=== PATIENT | female | born 1960 | race Caucasian/White ===

== ENCOUNTER 2024-03-14 09:56 | Emergency (ER) | payer OTHER, SELFPAY ==
[2024-03-14 10:00] VITALS: BP 160/86
[2024-03-14 11:05] VITALS: BMI 42.0
--- NOTE | 2024-03-14 11:14 | ED.GENMED ---
History of Present Illness
<SHYANN Mariano - Last Filed: 03/14/24 15:32>
General
Chief Complaint: Breathing Problem
Source: patient
Exam Limitations: none
Time Seen by Provider: 03/14/24 11:13
Nursing documentation reviewed up to this point in time: agreed with
History of Present Illness
History of Present Illness:
Patient is a 63-year-old female who presents to the ER complaining of fatigue and shortness of breath in January. She has not been to her family doctor for this. She reports she does not go routinely. She feels exhausted and very weak.
She reports she is very short of breath with exertion. She has not had any appetite and has had some weight loss. She denies any chest pain. She denies any recent illness fever chills. She did start with a nonproductive cough this week .
she is not a smoker. She does drink alcohol occasional
No prior history of DVT PE. No family history of DVT PE.
Past History
<SHYANN Mariano - Last Filed: 03/14/24 15:32>
Past History
ED Past Medical History: Psychiatric and Other (IBS)
ED Past Surgical History: Cholecystectomy
Social History
Tobacco: Non-smoker
Alcohol: None
Drug: None
Personal:
Living: with family
Employment: Employed
Family History
Family History: Other (Noncontributory)
Review of Systems
<SHYANN Mariano - Last Filed: 03/14/24 15:32>
Review of Systems
Allergies reviewed?: Yes
All Other Systems: ROS reviewed and negative except as documented in HPI and ROS
Constitutional: Reports fatigue; Denies fever or chills
EENT: Reports no symptoms
Respiratory: Reports cough and trouble breathing; Denies hemoptysis
Cardiac: Reports no symptoms; Denies chest pain, diaphoresis or palpitations
ABD/GI: Reports anorexia and other (weight loss)
: Reports no symptoms
Musculoskeletal: Reports no symptoms
Phy Exam
<Janine Bangura ELECTRICAL INSTRUMENTATION TECHNICIAN - Last Filed: 03/14/24 23:15>
Physical Exam
Physical Exam:
-year-old G was getting GENERAL: No acute distress. A&Ox3.
CONSTITUTIONAL: Afebrile.
EYES: clear, conjunctivae normal
Neck: Supple
ENMT: moist mucus membranes, Pharynx nl
RESPIRATORY: Regular respirations, nonlabored, lungs clear.
CARDIOVASCULAR: Regular rate and rhythm, no murmurs, no rubs.
GI: Soft, nontender, normal BS
MUSCULOSKELETAL: Moves with ease. Well perfused.
SKIN: Warm, dry, pink
PSYCH: Normal mood and affect. Well kept, interactive and appropriate
NEUROLOGIC: Awake, alert and oriented. No focal neurological deficits
Scores
<Janine Bangura ELECTRICAL INSTRUMENTATION TECHNICIAN - Last Filed: 03/14/24 23:15>
Heart Failure Risk
Heart Failure Risk Score: Not Applicable
Course
<SHYANN Mariano - Last Filed: 03/14/24 15:32>
Orders/Labs/Results
Orders:
Orders
03/14/24 09:57
Electrocardiogram (*1) Urgent
Reason for Study: Shortness of Breath
EKG- Treatment ONCE
03/14/24 11:16
BNP [NT-proBNP] Urgent
COVID-19 Antigen Urgent
Source: Nasal Swab
Complete Blood Count/With Diff Urgent
Comprehensive Metabolic Panel Urgent
Troponin I Urgent
Comment: ADD ON
03/14/24 11:23
Chest [CR Chest - 2 Views ] Urgent
Comment:
Reason For Exam: sob
03/14/24 11:27
DDimer [D-Dimer] Urgent
Urinalysis Reflex To Culture Urgent
Date Specimen was Collected: 03/14/24
Time Specimen was Collected: 11:24
Urine Microscopic Reflex Cult Urgent
03/14/24 13:20
CT Pe/abd/pel W Urgent
Comment:
Reason For Exam: sob /fatigue /elevated lfts
03/14/24 13:39
0.9% Sodium Chloride 1000 ml [Nss] 1,000 ml IV BOLUS
03/14/24 15:31
Add On- LAB Urgent
Tests Added?: troponin
Abnormal Lab Results
03/14/24 03/14/24
11:16 11:27
WBC 4.0 L 10^3/uL
(4.8-10.8)
MPV 10.7 H fL
(7.4-10.4)
Abs Immat Gran (auto) 0.1 H 10^3/uL
(0-0.05)
Immature Gran % 1.7 H %
(0-0.5)
Monocytes % 13.4 H %
(1.7-9.3)
D-Dimer 0.68 H ug/mlFEU
(0.00-0.50)
BUN 23 H mg/dl
(7-17)
AST 185 H U/L
(14-36)
ALT 125 H U/L
(0-35)
Alkaline Phosphatase 152 H U/L
(38-126)
Total Protein 6.1 L g/dl
(6.3-8.2)
Leukocyte Esterase Rfl Trace A
(Negative)
03/14/24 11:16
03/14/24 11:16
Vital Signs
Initial and Last Documented VS:
Initial Vital Signs
Temp Pulse Resp BP Pulse Ox
98.2 F 114 18 160/86 96
10/14/24 10:00 03/14/24 10:00 03/14/24 10:00 03/14/24 10:00 03/14/24 10:00
Last Documented Vital Signs
Temp Pulse Resp BP Pulse Ox
98.2 F 86 18 144/84 96
03/14/24 10:00 03/14/24 19:27 03/14/24 19:27 03/14/24 19:27 03/14/24 19:27
<Janine Bangura ELECTRICAL INSTRUMENTATION TECHNICIAN - Last Filed: 03/14/24 23:15>
Orders/Labs/Results
Orders:
Orders
03/14/24 09:57
Electrocardiogram (*1) Urgent
Reason for Study: Shortness of Breath
EKG- Treatment ONCE
03/14/24 11:16
BNP [NT-proBNP] Urgent
COVID-19 Antigen Urgent
Source: Nasal Swab
Complete Blood Count/With Diff Urgent
Comprehensive Metabolic Panel Urgent
Troponin I Urgent
Comment: ADD ON
03/14/24 11:23
Chest [CR Chest - 2 Views ] Urgent
Comment:
Reason For Exam: sob
03/14/24 11:27
DDimer [D-Dimer] Urgent
Urinalysis Reflex To Culture Urgent
Date Specimen was Collected: 03/14/24
Time Specimen was Collected: 11:24
Urine Microscopic Reflex Cult Urgent
03/14/24 13:20
CT Pe/abd/pel W Urgent
Comment:
Reason For Exam: sob /fatigue /elevated lfts
03/14/24 13:39
0.9% Sodium Chloride 1000 ml [Nss] 1,000 ml IV BOLUS
03/14/24 15:31
Add On- LAB Urgent
Tests Added?: troponin
Abnormal Lab Results
03/14/24 03/14/24
11:16 11:27
WBC 4.0 L 10^3/uL
(4.8-10.8)
MPV 10.7 H fL
(7.4-10.4)
Abs Immat Gran (auto) 0.1 H 10^3/uL
(0-0.05)
Immature Gran % 1.7 H %
(0-0.5)
Monocytes % 13.4 H %
(1.7-9.3)
D-Dimer 0.68 H ug/mlFEU
(0.00-0.50)
BUN 23 H mg/dl
(7-17)
AST 185 H U/L
(14-36)
ALT 125 H U/L
(0-35)
Alkaline Phosphatase 152 H U/L
(38-126)
Total Protein 6.1 L g/dl
(6.3-8.2)
Leukocyte Esterase Rfl Trace A
(Negative)
03/14/24 11:16
03/14/24 11:16
Vital Signs
Initial and Last Documented VS:
Initial Vital Signs
Temp Pulse Resp BP Pulse Ox
98.2 F 114 18 160/86 96
03/14/24 10:00 03/14/24 10:00 03/14/24 10:00 03/14/24 10:00 03/14/24 10:00
Last Documented Vital Signs
Temp Pulse Resp BP Pulse Ox
98.2 F 86 18 144/84 96
03/14/24 10:00 03/14/24 19:27 03/14/24 19:27 03/14/24 19:27 03/14/24 19:27
<SHYANN Mariano - Last Filed: 03/14/24 15:32>
MDM/Problems Addressed
MDM/Problems Addressed:
As documented patient is a 63-year-old female who presents to the ER complaining of shortness of breath fatigue for the past several weeks in January. She denies any chest pain fever chills. She does not go to her doctor frequently. As
documented she has decreased appetite weight loss. No cardiac history. Patient is afebrile initially mildly tachycardic on triage however that has corrected. She is short of breath with slightly low pulse ox with ambulation. Her white count is
4.0 her hemoglobin stable, her BUN is mildly elevated 23 creatinine is normal her LFTs with a normal bilirubin and her urinalysis is negative. She has no chest pain, her BNP is normal no acute findings on EKG. her D-dimer is mildly elevated. With
complaints of shortness of breath and weight loss with elevated LFTs we will rule out a PE and also CT of abdomen. Care of patient at this time transferred to SHY[facility] [place].
<Janine Bangura NP - Last Filed: 03/14/24 23:15>
MDM/Problems Addressed
MDM/Problems Addressed:
As documented patient is a 63-year-old female who presents to the ER complaining of shortness of breath fatigue for the past several weeks in January. She denies any chest pain fever chills. She does not go to her doctor frequently. As
documented she has decreased appetite weight loss. No cardiac history. Patient is afebrile initially mildly tachycardic on triage however that has corrected. She is short of breath with slightly low pulse ox with ambulation. Her white count is
4.0 her hemoglobin stable, her BUN is mildly elevated 23 creatinine is normal her LFTs with a normal bilirubin and her urinalysis is negative. She has no chest pain, her BNP is normal no acute findings on EKG. her D-dimer is mildly elevated. With
complaints of shortness of breath and weight loss with elevated LFTs we will rule out a PE and also CT of abdomen. Care of patient at this time transferred to SHY[facility] [place].
7:[address] abd/pelvis. chest Pe study radiology report read: IMPRESSION: No acute disease of the chest, abdomen and pelvis. No evidence of pulmonary embolus nor aortic dissection.
Hypodense right thyroid lesion likely a benign nodule. Dedicated thyroid ultrasound recommended if not previously evaluated.
Solid noncalcified 3 mm left lower lobe pulmonary nodule. This will be emailed to the [facility].
Nonobstructing bilateral renal stones.
Prior cholecystectomy.
Diverticulosis.
Mild fecal material throughout the colon.
Small simple left ovarian cyst measuring 1.8 cm. Uncommon in postmenopausal females.
All results including the nodules discussed with pt. Given copy of report to discuss with PCP
Pt OOB and ambulated hallway with pulse ox maintaining at 93% RA HR 109 and RR 32. VS normalized at rest
Afebrile
Case discussed with Dr. Maharaj who reviewed all results and agrees pt can go home. Pt wants to go home.
With the mild elevation in liver enzymes, mild elevation in d dimer, most likely a viral respiratory illness.
She has an Albuterol inhaler at home she will try and let her PCP know if it helps
Pt states she has a PCP that is easy to get in to see and she will have no problem getting in to see her in 2 days for recheck
Return instructions reviewed
<Janine Bangura NP - Last Filed: 03/14/24 23:15>
*Critical Care Note
Total Time (30-74mins, 75-104mins- exclusive of procedures): Not Applicable
ED Attending Note
<SHYANN Mariano - Last Filed: 03/14/24 15:32>
-
Portions of this chart may have been created with voice recognition software.� Occasional wrong word or��sound alike� substitutions may have occurred due to the inherent limitations of voice recognition software.
Discharge Plan
Departure
Patient Disposition: Home (Routine Discharge)
Date of Disposition: 03/14/24
Time of Disposition: 19:28
Patient with high blood pressure during this ER visit?: No
Condition: Good
Discharge Problem:
URI, acute
Instructions: Shortness of Breath, Adult ED, Upper Respiratory Infection ED
Prescriptions:
No Action
clonazepam 0.5 MG tablet
0.5 mg PO BID
trazodone 100 MG tablet
100 mg PO HS
ibuprofen 200 MG tablet
400 mg PO HS
bupropion HCl 200 MG tablet sustained-release 12 hr
200 mg PO DAILY
escitalopram oxalate 20 MG tablet
20 mg PO DAILY
melatonin 1 MG tablet
1 mg PO HS
albuterol sulfate [Proventil HFA] 90 MCG/PUFF HFA aerosol inhaler
1 puff inhalation Q4HPRN PRN (Reason: shortness of breath) Qty: 1 0RF
doxycycline hyclate 100 MG capsule
100 mg PO Q12 Qty: 14 0RF
methylprednisolone [Medrol (Omer)] 4 MG tablets,dose pack
4 tab PO . DIRECT Qty: 1 0RF
Referrals:
Ajay Whitmore [Other] - Follow up in 2-3 days
Shima Whitmore CRNP [Family Provider] -
Activity Restrictions/Additional Instructions:
As we discussed, you most likely have an upper respiratory viral infection.
Try your Albuterol inhaler 2 puffs every 4 hours as needed for shortness of breath.
See your doctor in 2-3 days for recheck
Return here immediately for worsening shortness of breath, fever or feeling sicker in any way.
Interventions
Interventions:
*Risk Screen - Suicide Last Done: 03/14/24 10:00
*General Assessment Last Done: 03/14/24 10:00
*Neglect/Abuse Screening Last Done: 03/14/24 10:00
ED- Fall Risk Assessment Last Done: 03/14/24 11:23
*ED COVID-19 Vaccine History Last Done: 03/14/24 10:00
*Nursing Disposition Last Done: 03/14/24 19:57
ED- Cardiac Assessment Last Done: 03/14/24 11:22
ED- Pulmonary Assessment Last Done: 03/14/24 11:22
Discharge Date and Time
Discharge Date/Time: 03/14/24 19:57
Print Language: BOTSWANAN
[2024-03-14 11:26] VITALS: BP 151/60
[2024-03-14 11:28] LABS: % Eosinophils 2.7 % (0-6); % Immature Granulocytes 1.7 % (0-0.5); % Lymphocytes 34.6 % (20.5-51.1); % Monocytes 13.4 % (1.7-9.3); % Neutrophils 46.6 % (42.2-75.2); Absolute Eosinophils 0.1 10^3/uL (0-0.7); Absolute Immature Granulocytes 0.1 10^3/uL (0-0.05); Absolute Lymphocytes 1.4 10^3/uL (1.2-3.4); Absolute Monocytes 0.5 10^3/uL (0.1-0.6); Absolute Neutrophils 1.9 10^3/uL (1.4-6.5); Hematocrit 37.5 % (37.0-47.0); Hemoglobin 12.9 g/dL (12.0-16.0); Mean Corp Hgb Conc. 34.4 g/dL (33.0-37.0); Mean Corpuscular Hgb 30.1 pg (27.0-31.0); Mean Corpuscular Volume 87.6 fL (81.0-99.0); Mean Platelet Volume 10.7 fL (7.4-10.4); Nucleated Red Blood Cells % 0 %; Platelet Count 162 10^3/uL (130-400); Red Blood Cell Count 4.28 10^6/uL (4.20-5.40); Red Cell Dist. Width 12.3 % (11.5-14.5)
[2024-03-14 11:44] VITALS: BP 144/120
[2024-03-14 11:44] LABS: ALT (SGPT) 125 U/L (0-35); AST (SGOT) 185 U/L (14-36); Albumin 3.8 g/dl (3.5-5.0); Alkaline Phosphatase 152 U/L (38-126); Blood Urea Nitrogen 23 mg/dl (7-17); Carbon Dioxide 30 mmol/L (22-30); Chloride 101 mmol/L (98-107); Estimated Creatinine Clearance 62 ml/min; Glucose 86 mg/dl (70-99); Sodium 138 mmol/L (135-145); Total Bilirubin 0.7 mg/dl (0.2-1.3); Total Protein 6.1 g/dl (6.3-8.2); eGFR > 60.00
[2024-03-14 11:45] LABS: COVID-19 Antigen Negative (Negative)
[2024-03-14 11:49] LABS: NT-proBNP 99.6 pg/ml
[2024-03-14 11:59] LABS: Urine Albumin Trace (Neg - Trace); Urine Bilirubin Negative (Negative); Urine Character Clear (Clear); Urine Color Yellow; Urine Glucose Negative (Negative); Urine Ketone Negative (Negative); Urine Leukocyte Trace (Negative); Urine Nitrite Negative (Negative); Urine Occult Blood Negative (Negative); Urine Urobilinogen Negative (Neg - 1+)
[2024-03-14 12:01] LABS: D-Dimer 0.68 ug/mlFEU (0.00-0.50)
[2024-03-14 12:30] LABS: Urine Mucus Many; Urine Squamous Cell 16-20 /LPF (Few)
[2024-03-14 12:31] LABS: Urine Amorphous Seen; Urine Hyaline Cast 0-2 /LPF (0-2)
[2024-03-14 12:33] LABS: Urine Red Blood Cell 0-2 /HPF (0-2)
[2024-03-14] MEDS: NSS 1000 IV (13:41)
[2024-03-14 16:21] VITALS: BP 129/71
[2024-03-14 16:34] LABS: Troponin I < 0.012 ng/ml
[2024-03-14 19:27] VITALS: BP 144/84
== END 2024-03-14 19:57 | disposition home or self-care (01) ==
LOC: EMR 09:56
PROVIDERS: Emergency Medicine; Nurse Practitioner; EMERGENCY PHYSICIAN Student in an Organized Health Care Education/Training Program; FAMILY PHYSICIAN Nurse Practitioner Primary Care
DX: J06.9 Acute upper respiratory infection, unspecified (principal)
CPT/HCPCS: 99285; 96360; 71046; 71275; 74177; 80053; 81003; 81015; 83880; 84484; 85025; 85379; 87811; 93005; Q9967

== ENCOUNTER 2024-06-25 11:16 | Emergency (ER) | payer OTHER, SELFPAY ==
[2024-06-25 11:23] VITALS: BP 182/100
[2024-06-25 12:01] VITALS: BP 131/99
--- NOTE | 2024-06-25 12:03 | ED.GENMED ---
History of Present Illness
General
Chief Complaint: Breathing Problem
Time Seen by Provider: 06/25/24 12:03
History of Present Illness
History of Present Illness:
TIME OF INITIAL ENCOUNTER: 12:05 PM
HPI: Patient presents due to shortness of breath. This has been ongoing for about a month. She has somewhat of a tightness feeling. She states that her symptoms worsen with exertion. There has been no change in weight. She denies any
cardiopulmonary history. Shortness of breath is associated with chest discomfort.
EXAM:
GENERAL: Well appearing in no distress, elevated BMI
HEENT: Moist oral mucosa
CARDIOVASCULAR: No murmurs, normal heart rate, regular rhythm, No chest wall tenderness
PULMONARY: No respiratory distress, breath sounds are clear and equal but possibly slightly diminished
ABDOMEN: Soft with no peritoneal signs, no tenderness
NEUROLOGIC: Excellent strength all extremities, no coordination deficits
PSYCHIATRIC: Appropriate mental status, normal insight and judgement
EXTREMITIES: Nontender, no edema, moves all extremities equally
SKIN: No rash, no lesions
NUMBER AND COMPLEXITY OF PROBLEMS ADDRESSED AT THE ENCOUNTER
� Chronic conditions affecting care: Anxiety, bipolar
� Acute Exacerbation and/or Progression of Chronic Illness: This is an acute problem
� Differential Diagnosis includes: Reactive airway disease, bronchitis, pneumonia, ACS, PE
AMOUNT AND/OR COMPLEXITY OF DATA TO BE REVIEWED AND ANALYZED
� I performed an independent evaluation of and my interpretation is:
EKG: Sinus 84, leftward axis deviation, no acute ST abnormality
CT:
X-rays: Chest x-ray suggests atelectasis in the left base
Laboratory Studies: CBC normal, troponin less than 0.012, D-dimer less than 0.27, BNP 94
Other:
� Review of other/old records: Chest x-ray from a couple months ago suggested atelectasis
� Clinical information was obtained by an independent historian: None needed
� Prescriptions/Medications Considered but not given: Considered Z-Omer�see below
� Further testing considered but not performed:
RISK OF COMPLICATIONS AND/OR MORBIDITY OR MORTALITY OF PATIENT MANAGEMENT
� Social determinants of health affecting care: Lives at home
� Discussion with other providers:
� Escalation of care including admission/observation vs risk of discharge considered: The patient was given a DuoNeb but no significant improvement. BNP, D-dimer, troponin all unremarkable. Symptoms have been ongoing for weeks
to months.
ANY OTHER UPDATES:
Given the possibility of infectious etiology, initially consider Guillermo however has multiple interactions with meds that she is on. Will place on amoxicillin and have patient follow up with pulmonary and cardiology. Your chest pain is not
necessarily acute has also been going on for a weeks to months.
Past History
Past History
ED Past Medical History: Psychiatric and Other (IBS)
ED Past Surgical History: Cholecystectomy
Social History
Tobacco: Non-smoker
Alcohol: None
Drug: None
Personal:
Living: with family
Employment: Employed
Family History
Family History: Other (Noncontributory)
Phy Exam
Physical Exam
Physical Exam:
See HPI
Scores
Heart Failure Risk
Heart Failure Risk Score: Not Applicable
Course
Orders/Labs/Results
Orders:
Orders
06/25/24 11:17
EKG [Electrocardiogram (*1)] Stat
Reason for Study: Chest Pain
06/25/24 11:18
EKG- Treatment ONCE
06/25/24 11:59
CXR2 [CR Chest - 2 Views ] Urgent
Comment:
Reason For Exam: shortness of breath
06/25/24 12:07
Complete Blood Count/With Diff Urgent
Comprehensive Metabolic Panel Urgent
NT-proBNP Urgent
Troponin I Urgent
06/25/24 12:11
Ipratropium/Albuterol Sulfate [Duoneb] 3 ml INH R NOW STA
06/25/24 12:17
D-Dimer Urgent
06/25/24 15:07
Amoxicillin [Amoxil] 1,000 mg PO NOW STA
Abnormal Lab Results
06/25/24
12:07
BUN 26 H mg/dl
(7-17)
AST 43 H U/L
(14-36)
ALT 44 H U/L
(0-35)
06/25/24 12:07
06/25/24 12:07
Vital Signs
Initial and Last Documented VS:
Initial Vital Signs
Temp Pulse Resp BP Pulse Ox
36.8 C 90 18 182/100 97
06/25/24 11:23 06/25/24 11:23 06/25/24 11:23 06/25/24 11:23 06/25/24 11:23
Last Documented Vital Signs
Temp Pulse Resp BP Pulse Ox
36.4 C 74 15 143/74 99
06/25/24 12:40 06/25/24 13:27 06/25/24 13:27 06/25/24 13:27 06/25/24 13:27
*Critical Care Note
Total Time (30-74mins, 75-104mins- exclusive of procedures): Not Applicable
ED Attending Note
-
Portions of this chart may have been created with voice recognition software.� Occasional wrong word or��sound alike� substitutions may have occurred due to the inherent limitations of voice recognition software.
Discharge Plan
Departure
Patient Disposition: Home (Routine Discharge)
Date of Disposition: 06/25/24
Time of Disposition: 15:07
Patient with high blood pressure during this ER visit?: Yes
Discharge Problem:
Acute bronchitis
Instructions: Acute Bronchitis, Adult (DC), Chest Pain DCA Follow Up
Prescriptions:
New
albuterol sulfate 90 mcg/actuation HFA aerosol inhaler
2 puff inhalation Q6H PRN (Reason: shortness of breath or wheezing) Qty: 8.5 0RF
amoxicillin 500 mg tablet
1,000 mg PO Q12H Qty: 28 0RF
No Action
escitalopram oxalate 20 MG tablet
20 mg PO DAILY
meloxicam 15 mg Tablet
15 mg PO DAILY
aripiprazole 2 mg Tablet
2 mg PO DAILY
acetaminophen [Tylenol] 325 mg Tablet
650 mg PO Q4HPRN PRN (Reason: mild pain)
quetiapine [Seroquel] 300 mg Tablet
300 mg PO HS
Theragen Tablet
1 tab PO DAILY
trazodone 300 mg Tablet
300 mg PO HS
bupropion HCl [Wellbutrin XL] 300 mg Tablet Extended Release 24 Hr
300 mg PO DAILY
lysine 600 mg Tablet
600 mg PO DAILY
melatonin 10 mg Tablet
10 mg PO HSPRN PRN (Reason: sleep)
magnesium oxide 400 mg magnesium Tablet
400 mg PO DAILY
Referrals:
Dejuan Adan MD [Active] - Follow up in 2-3 days
Shima Whitmore CRNP [Family Provider] -
Carson Broussard DO [Active] - Follow up in 2-3 days
Activity Restrictions/Additional Instructions:
I have given you the contact information for a local informatica architect and yarder puncher to follow-up with given your ongoing symptoms. Return here if worse. We can try an antibiotic to see if this helps your symptoms. Blood work shows no sign of
heart attack, blood clot, or heart failure. I also sent a prescription for a inhaler to your pharmacy.
Interventions
Interventions:
*Risk Screen - Suicide Last Done: 06/25/24 11:23
*General Assessment Last Done: 06/25/24 11:23
*Neglect/Abuse Screening Last Done: 06/25/24 11:23
ED- Fall Risk Assessment Last Done: 06/25/24 12:40
*ED COVID-19 Vaccine History Last Done: 06/25/24 12:40
ED- Cardiac Assessment Last Done: 06/25/24 12:40
ED- Pulmonary Assessment Last Done: 06/25/24 12:40
Discharge Date and Time
Print Language: GUAMANIAN
[2024-06-25 12:23] VITALS: BMI 42.7
[2024-06-25 12:28] LABS: % Basophils 1.1 % (0-2); % Eosinophils 2.5 % (0-6); % Immature Granulocytes 0.3 % (0-0.5); % Lymphocytes 22.1 % (20.5-51.1); % Monocytes 7.6 % (1.7-9.3); % Neutrophils 66.4 % (42.2-75.2); Absolute Basophils 0.1 10^3/uL (0-0.2); Absolute Eosinophils 0.2 10^3/uL (0-0.7); Absolute Lymphocytes 1.4 10^3/uL (1.2-3.4); Absolute Monocytes 0.5 10^3/uL (0.1-0.6); Absolute Neutrophils 4.3 10^3/uL (1.4-6.5); Hematocrit 39.8 % (37.0-47.0); Hemoglobin 13.6 g/dL (12.0-16.0); Mean Corp Hgb Conc. 34.2 g/dL (33.0-37.0); Mean Corpuscular Volume 90.7 fL (81.0-99.0); Mean Platelet Volume 9.9 fL (7.4-10.4); Nucleated Red Blood Cells % 0 %; Platelet Count 203 10^3/uL (130-400); Red Blood Cell Count 4.39 10^6/uL (4.20-5.40); Red Cell Dist. Width 12.4 % (11.5-14.5); White Blood Cell Count 6.5 10^3/uL (4.8-10.8)
[2024-06-25 12:40] VITALS: BP 131/99
[2024-06-25 12:40] LABS: ALT (SGPT) 44 U/L (0-35); AST (SGOT) 43 U/L (14-36); Albumin 4.1 g/dl (3.5-5.0); Alkaline Phosphatase 106 U/L (38-126); Blood Urea Nitrogen 26 mg/dl (7-17); Carbon Dioxide 26 mmol/L (22-30); Chloride 102 mmol/L (98-107); Estimated Creatinine Clearance 69 ml/min; Glucose 90 mg/dl (70-99); Potassium 4.3 mmol/L (3.5-5.1); Sodium 136 mmol/L (135-145); Total Bilirubin 0.6 mg/dl (0.2-1.3); Total Protein 6.5 g/dl (6.3-8.2); eGFR > 60.00
[2024-06-25] MEDS: DUONEB 3 ML INH (12:42)
[2024-06-25 12:44] LABS: D-Dimer < 0.27 ug/mlFEU (0.00-0.50)
[2024-06-25 12:51] LABS: NT-proBNP 94.4 pg/ml; Troponin I < 0.012 ng/ml
[2024-06-25 13:00] VITALS: BP 143/74
[2024-06-25 13:27] VITALS: BP 143/74
[2024-06-25] MEDS: AMOXIL 1000 MG PO (15:19)
== END 2024-06-25 15:32 | disposition home or self-care (01) ==
LOC: EMR 11:16
PROVIDERS: EMERGENCY PHYSICIAN Emergency Medicine; FAMILY PHYSICIAN Nurse Practitioner Primary Care
DX: J20.9 Acute bronchitis, unspecified (principal); K58.9 Irritable bowel syndrome, unspecified
CPT/HCPCS: 99283; 94640; 71046; 80053; 83880; 84484; 85025; 85379; 93005